=== PATIENT | female | born 1950 | race Caucasian/White ===

== ENCOUNTER 2016-12-03 12:10 | Emergency (ER) | payer OTHER ==
[~2016-12-03] VITALS: Ht 165.1 cm; Wt 63.5 kg
[~2016-12-03 12:10] MED LIST: AMLODIPINE BESYL5 M1 PO; CALCIUM 500 +1 EAC5 PO; CIPRO500 M1 PO; FISH OIL 1,0001 EACH PO; FLAGYL250 M1 PO; HYDROCHLOROTHIA25 M1 PO; ONDANSETRON4 MG/2 M3 IV; PROTONIX40 M3 IV; TOPROL XL100 M1 PO; VITAMIN B-121000 MC3 PO
--- NOTE | 2016-12-03 12:24 | ED GI/GU/ABDOMINAL COMPLAINT ---
History of Present Illness General Chief Complaint: Nausea, Vomiting, Diarrhea Stated Complaint: NOT FEELING WELL, N/V/D Vital Signs & Intake/Output Vital Signs & Intake/Output Vital Signs Date Time Temp Pulse Resp B/P Pulse O2 O2 Flow FiO2 Ox Delivery Rate 12/03 1213 97.7 87 18 118/80 94 Room Air Allergies Coded Allergies: erythromycin base (Intermediate, ABDOMINAL PAIN 12/03/16) lisinopril (Intermediate, COUGHING 12/03/16) Reconcile Medications Amlodipine Besylate 5 MG TABLET 1 TAB PO DAILY BP (Reported) Calcium Carbonate/Vitamin D3 (Calcium 500 + D Tablet) 500 MG-400 TABLET 1 TAB PO DAILY SUPPLEMENT (Reported) Ciprofloxacin HCl (Cipro) 500 MG TABLET 1 TAB PO BID DICERTICULITIS Cyanocobalamin (Vitamin B-12) 1,000 MCG TABLET 1 TAB PO DAILY SUPPLEMENT ( Reported) Hydrochlorothiazide 25 MG TABLET 1 TAB PO DAILY BP (Reported) Metoprolol Succ XL (Toprol XL) 100 MG TAB.ER.24H 1 TAB PO DAILY BP (Reported) Metronidazole (Flagyl) 250 MG TABLET 250 MG PO Q8 DIVERTICULITIS Ondansetron HCl/Pf (Ondansetron HCl 4 MG/2 Ml Vial) 4 MG/2 ML VIAL 4 MG IV ONCE PRN NAUSEA/VOMITING Pantoprazole Sodium (Protonix) 40 MG TABLET.DR 40 MG IV DAILY ACID REFLUX Triage Note: TRIAGE: PT TO ER C/C LOW ABD PAIN, N/V/D. STATES "I CAN'T KEEP NOTHING DOWN" X "AT LEAST A WEEK". PMHX PANCREATIC CANCER. LAST HAD CHEMOTHERAPY 11/24/2016. Past History Travel History Traveled to [place] past 21 day No Medical History Neurological: NONE EENT: NONE Cardiovascular: hypertension, heart murmur Respiratory: NONE Gastrointestinal: GERD Hepatic: NONE Renal: nephrolithiasis Musculoskeletal: NONE Psychiatric: NONE Endocrine: NONE Blood Disorders: DVT Cancer(s): pancreatic cancer ABATTOIR SUPERVISOR/Reproductive: NONE History of MRSA: No History of VRE: No History of CDIFF: No Surgical History Surgical History: none Psychosocial History Who do you live with Family Services at Home None What is your primary language Belarusian Tobacco Use: Quit >30 days ago ETOH Use: denies use Illicit Drug Use: denies illicit drug use Family History Family History, If Any: FATHER CABG Progress Plan of Care: Orders Procedure Date/time Status LACTIC ACID 12/03 1525 Active XRY-PORTABLE CHEST XRAY 12/03 1253 Active Add-on Test (ER Only) 12/03 1253 Active EKG 12/03 1253 Active URINALYSIS 12/03 1225 Active TROPONIN LEVEL 12/03 1225 Active LIPASE 12/03 1225 Active LACTIC ACID 12/03 1225 Active COMPREHENSIVE METABOLIC PANEL 12/03 1225 Active CBC WITHOUT DIFFERENTIAL 12/03 1225 Complete AMYLASE 12/03 1225 Active Current Medications Sig/Jonathan Start time Last Medication Dose Stop Time Status Admin Sodium Chloride 1,000 ML BOLUS ONE 12/03 1300 AC (Normal Saline 0.9%) 12/03 1359 Sodium Chloride 1,000 ML BOLUS ONE 12/03 1300 AC (Normal Saline 0.9%) 12/03 1359 Laboratory Tests 12/03/16 1253: Anion Gap 9, Estimated GFR > 60, BUN/Creatinine Ratio 28.3 H, Glucose 119 H, Lactic Acid 1.5, Calcium 9.0, Total Bilirubin 0.4, AST 18, ALT 53 H, Alkaline Phosphatase 70, Troponin I Pending, Total Protein 5.0 L, Albumin 2.7 L, Globulin 2.3, Albumin/Globulin Ratio 1.2, Amylase < 30 L, Lipase 71, CBC w Diff MAN DIFF ORDERED, RBC 4.58, MCV 88.8, MCH 29.6, RDW 14.0, MPV 8.2, Gran % 50.7, Lymphocytes % 26.7, Monocytes % 21.9 H, Eosinophils % 0.3, Basophils % 0.4, Absolute Granulocytes 1.7, Segmented Neutrophils 35 L, Band Neutrophils 13 H, Absolute Lymphocytes 0.9 L, Lymphocytes 33, Monocytes 18 H, Absolute Monocytes 0.7 H, Absolute Eosinophils 0, Absolute Basophils 0, Metamyelocytes 1, Platelet Estimate VERIFIED BY SMEAR, Normocytic RBCs VERIFIED, Normochromic RBCs VERIFIED , PUBS MCHC 33.3 Departure Departure Condition: Stable Referrals: ALIDA ZARATE APRN (PCP/Family) Departure Forms: Customer Survey General Discharge Information
--- NOTE | 2016-12-03 12:57 | ED GI/GU/ABDOMINAL COMPLAINT ---
History of Present Illness General Chief Complaint: Nausea, Vomiting, Diarrhea Stated Complaint: NOT FEELING WELL, N/V/D Source: patient, family, old records Exam Limitations: no limitations Vital Signs & Intake/Output Vital Signs & Intake/Output Vital Signs Date Time Temp Pulse Resp B/P Pulse O2 O2 Flow FiO2 Ox Delivery Rate 12/03 1718 108/61 12/03 1641 98.9 73 18 96/56 92 Room Air 12/03 1429 99.9 12/03 1419 99.9 74 18 109/67 96 Room Air 12/03 1213 97.7 87 18 118/80 94 Room Air Allergies Coded Allergies: erythromycin base (Intermediate, ABDOMINAL PAIN 12/03/16) lisinopril (Intermediate, COUGHING 12/03/16) Reconcile Medications Amlodipine Besylate 5 MG TABLET 1 TAB PO DAILY BP (Reported) Calcium Carbonate/Vitamin D3 (Calcium 500 + D Tablet) 500 MG-400 TABLET 1 TAB PO DAILY SUPPLEMENT (Reported) Ciprofloxacin HCl (Cipro) 500 MG TABLET 1 TAB PO BID DICERTICULITIS Cyanocobalamin (Vitamin B-12) 1,000 MCG TABLET 1 TAB PO DAILY SUPPLEMENT ( Reported) Hydrochlorothiazide 25 MG TABLET 1 TAB PO DAILY BP (Reported) Metoprolol Succ XL (Toprol XL) 100 MG TAB.ER.24H 1 TAB PO DAILY BP (Reported) Metronidazole (Flagyl) 250 MG TABLET 250 MG PO Q8 DIVERTICULITIS Ondansetron (Zofran Odt) 4 MG TAB.RAPDIS 1 TAB SL TID PRN NAUSEA Ondansetron HCl/Pf (Ondansetron HCl 4 MG/2 Ml Vial) 4 MG/2 ML VIAL 4 MG IV ONCE PRN NAUSEA/VOMITING Pantoprazole Sodium (Protonix) 40 MG TABLET.DR 40 MG IV DAILY ACID REFLUX Triage Note: TRIAGE: PT TO ER C/C LOW ABD PAIN, N/V/D. STATES "I CAN'T KEEP NOTHING DOWN" X "AT LEAST A WEEK". PMHX PANCREATIC CANCER. LAST HAD CHEMOTHERAPY 11/24/2016. Triage Nurses Notes Reviewed? yes ? N Is pt currently ? No HPI: PT HAS KNOWN STAGE 4 PANCREATIC CA AND IS ON CHEMO. HER LAST ROUND WAS 11/24/16. SHE HAS BEEN HAVING NAUSEA, VOIMITING AND DIARRHEA. SHE ALSO HAS BEEN HAVING INTERMITTENT ABD CRAMPY PAIN. SHE CALLED HER ONCOLOGIST TODAY BECAUSE OF THE PERSISTENT N/V AND DIARRHEA. HER ABD PAIN IS INTERMITTENT AND CRAMPY, IT IS DIFFUSE. NO AGGRIVATING OR MITIGATING FACTORS. THE PAIN LASTS A FEW HOURS AND THEN GOES AWAY. SHE DOES NOT ASSOCIATE THE N/V/D WITH THE ABD PAIN.. AT ITS WORST THE PAIN IS 6 OUT OF 10. THERE IS NO RADIATION OUTSIDE OF THE ABD AREA. Past History Travel History Traveled to [place] past 21 day No Medical History Any Pertinent Medical History? 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 No Review of Systems Review of Systems Constitutional: Reports: no symptoms. EENTM: Reports: no symptoms. Respiratory: Reports: no symptoms. Cardiovascular: Reports: no symptoms. GI: Reports: see HPI, abdominal pain, diarrhea, nausea, vomiting. Genitourinary: Reports: no symptoms. Musculoskeletal: Reports: no symptoms. Skin: Reports: no symptoms. Neurological/Psychological: Reports: no symptoms. Hematologic/Endocrine: Reports: no symptoms. Immunologic/Allergic: Reports: no symptoms. All Other Systems: Reviewed and Negative Physical Exam Physical Exam General Appearance: well developed/nourished, alert, awake, anxious, mild distress Head: atraumatic, normal appearance Eyes: Bilateral: PERRL, EOMI. Ears, Nose, Throat, Mouth: hearing grossly normal, DRY MUCOSA Neck: normal inspection, supple, full range of motion Respiratory: normal breath sounds, chest non-tender, no respiratory distress, lungs clear Cardiovascular: regular rate/rhythm, normal peripheral pulses Gastrointestinal: normal bowel sounds, soft, non-tender, no organomegaly, NO REBOUND OR GUARDING Back: normal inspection, normal range of motion Extremities: normal range of motion Neurologic/Psych: no motor/sensory deficits, awake, alert, oriented x 3, normal mood/affect Skin: intact, normal color, warm/dry Core Measures ACS in differential dx? No Severe Sepsis Present: No Septic Shock Present: No Progress Differential Diagnosis: biliary colic, bowel obstruction, cholecystitis, gastritis, hepatitis, ischemic bowel, inflamm bowel dis, pancreatitis Plan of Care: Orders Procedure Date/time Status Add-on Test (ER Only) 12/03 1253 Active EKG 12/03 1253 Active URINALYSIS 12/03 1225 Complete TROPONIN LEVEL 12/03 1225 Complete LIPASE 12/03 1225 Complete LACTIC ACID 12/03 1225 Complete COMPREHENSIVE METABOLIC PANEL 12/03 1225 Complete CBC WITHOUT DIFFERENTIAL 12/03 1225 Complete AMYLASE 12/03 1225 Complete Laboratory Tests 12/03/16 1525: Lactic Acid Cancelled 12/03/16 1453: Urinalysis LIGHT H, Urine Color YEL, Urine Clarity HAZY H, Urine pH 6.0, Ur Specific [place] 1.025, Urine Protein 30 H, Urine Ketones TRACE H, Urine Nitrite NEG, Urine Bilirubin NEG@ICTO, Urine Urobilinogen 0.2, Ur Leukocyte Esterase NEG, Ur Microscopic SEDIMENT EXAMINED, Urine RBC RARE, Urine WBC 1-3 H , Ur Epithelial Cells MANY H, Urine Mucus MANY H, Urine Hemoglobin TRACE- INTACT, Urine Glucose NEG 12/03/16 1253: Anion Gap 9, Estimated GFR > 60, BUN/Creatinine Ratio 28.3 H, Glucose 119 H, Lactic Acid 1.5, Calcium 9.0, Total Bilirubin 0.4, AST 18, ALT 53 H, Alkaline Phosphatase 70, Troponin I < 0.01, Total Protein 5.0 L, Albumin 2.7 L, Globulin 2.3, Albumin/Globulin Ratio 1.2, Amylase < 30 L, Lipase 71, CBC w Diff MAN DIFF ORDERED, RBC 4.58, MCV 88.8, MCH 29.6, RDW 14.0, MPV 8.2, Gran % 50.7, Lymphocytes % 26.7, Monocytes % 21.9 H, Eosinophils % 0.3, Basophils % 0.4, Absolute Granulocytes 1.7, Segmented Neutrophils 35 L, Band Neutrophils 13 H, Absolute Lymphocytes 0.9 L, Lymphocytes 33, Monocytes 18 H, Absolute Monocytes 0.7 H, Absolute Eosinophils 0, Absolute Basophils 0, Metamyelocytes 1, Platelet Estimate VERIFIED BY SMEAR, Normocytic RBCs VERIFIED, Normochromic RBCs VERIFIED , PUBS MCHC 33.3 Initial ED EKG: none Comments: D/W ONCOLOGY, PT IS STABLE IS FOR DISCHARGE. THIS WAS DISCUSSED WITH THE PT AND HER . QUESTIONS HAVE BEEN ANSWERED. THEY ARE COMFORTABLE WITH THE PLAN. Departure Departure Disposition: HOME OR SELF CARE Condition: Stable Clinical Impression Primary Impression: Upper abdominal pain, unspecified Secondary Impressions: Vomiting Referrals: ALIDA ZARATE APRN (PCP/Family) Additional Instructions: RETURN IF SYMPTOMS WORSEN OR FOR ANY CONCERNS Departure Forms: Customer Survey General Discharge Information Prescriptions: Current Visit Scripts Ondansetron (Zofran Odt) 1 TAB SL TID PRN NAUSEA #10 TAB
[2016-12-03 13:13] LABS: ABSOLUTE BASOPHIL COUNT 0 /CUMM (0.0-0.2); ABSOLUTE EOSINOPHIL COUNT 0 /CUMM (0.0-0.7); ABSOLUTE GRANULOCYTE CT 1.7 /CUMM (1.4-6.5); ABSOLUTE LYMPH COUNT 0.9 /CUMM (1.2-3.4); ABSOLUTE MONOCYTE COUNT 0.7 /CUMM (0.10-0.60); BASOPHIL % 0.4 % (0.0-2.0); EOSINOPHIL % 0.3 % (0-5); GRANULOCYTE % 50.7 % (42.2-75.2); HEMATOCRIT 40.6 % (37-47); MEAN CORPUSCULAR HGB 29.6 PG (27.0-31.0); MEAN CORPUSCULAR HGB CONC 33.3 G/DL (33.0-37.0); MEAN CORPUSCULAR VOLUME 88.8 FL (81.0-99.0); MEAN PLATELET VOLUME 8.2 FL (7.4-10.4); PLATELET COUNT 233 /CUMM (130-400); RED BLOOD CELL CT 4.58 /CUMM (4.20-5.40); WHITE BLOOD CELL COUNT 3.3 /CUMM (4.8-10.8)
--- NOTE | 2016-12-03 14:26 | RADIOLOGY REPORT ---
EXAMINATION: XR PORTABLE CHEST CLINICAL INFORMATION: Chest pain COMPARISON: None TECHNIQUE: Portable AP view of the chest was obtained. FINDINGS: There is a Port-A-Cath with the tip situated in the right atrium approximately 2 cm deep to the junction with the superior vena cava. The tubing is grossly intact. No pneumothorax is identified. Heart size is normal. The aorta is mildly tortuous. Pulmonary vascularity is normal. There is elevation of the right diaphragm with some subsegmental atelectasis or scarring at the right lung base. No other focal findings are seen. The left lung is clear. There is no definitive pleural effusion. No acute bony abnormality is seen. There is some hypertrophic spurring in the dorsal spine IMPRESSION: Port-A-Cath in place with the tip in the right atrium. Elevated right diaphragm with subsegmental atelectasis or scarring at the right base. No other finding.
[2016-12-03] MEDS ORDERED: ZOFRAN ODT4 M1 SL (15:47)
[2016-12-03 17:18] VITALS: BP 108/61
== END 2016-12-03 17:32 ==
LOC: ERH 12:10
PROVIDERS: Physician Assistant
DX: R10.10 Upper abdominal pain, unspecified (principal); R11.10 Vomiting, unspecified
CPT/HCPCS: 81001; 93005; 93010; 96374; 96375; 96376; J2405

== ENCOUNTER 2018-07-04 20:17 | Inpatient (IN) | payer OTHER ==
[~2018-07-04] VITALS: Ht 162.6 cm; Wt 68.0 kg
[~2018-07-04 20:17] MED LIST changes: +ZOFRAN ODT4 M1 SL
--- NOTE | 2018-07-04 20:33 | ED DYSPNEA/ASTHMA COMPLAINT ---
History of Present Illness General Chief Complaint: Dyspnea (COPD, CHF, Other) Stated Complaint: "DIFF BREATHING" Source: patient, family, old records Exam Limitations: no limitations Vital Signs & Intake/Output Vital Signs & Intake/Output Vital Signs Date Time Temp Pulse Resp B/P B/P Pulse O2 O2 Flow FiO2 Mean Ox Delivery Rate 07/044 98.2 78 22 111/68 95 Nasal Cannula 07/04 2038 97.6 85 16 117/58 86 Room Air 07/04 2030 Nasal 4.0L Cannula ED Intake and Output 07/05 0000 07/04 1200 Intake Total 0 Output Total Balance 0 Intake, Oral 0 Patient 150 lb Weight Weight Reported by Patient Measurement Method Allergies Coded Allergies: erythromycin base (Intermediate, ABDOMINAL PAIN 12/03/16) lisinopril (Intermediate, COUGHING 12/03/16) Reconcile Medications Amlodipine Besylate 5 MG TABLET 1 TAB PO DAILY BP (Reported) Calcium Carbonate/Vitamin D3 (Calcium 500 + D Tablet) 500 MG-400 TABLET 1 TAB PO DAILY SUPPLEMENT (Reported) Ciprofloxacin HCl (Cipro) 500 MG TABLET 1 TAB PO BID DICERTICULITIS Cyanocobalamin (Vitamin B-12) 1,000 MCG TABLET 1 TAB PO DAILY SUPPLEMENT ( Reported) Hydrochlorothiazide 25 MG TABLET 1 TAB PO DAILY BP (Reported) Metoprolol Succ XL (Toprol XL) 100 MG TAB.ER.24H 1 TAB PO DAILY BP (Reported) Metronidazole (Flagyl) 250 MG TABLET 250 MG PO Q8 DIVERTICULITIS Ondansetron (Zofran Odt) 4 MG TAB.RAPDIS 1 TAB SL TID PRN NAUSEA Ondansetron HCl/Pf (Ondansetron HCl 4 MG/2 Ml Vial) 4 MG/2 ML VIAL 4 MG IV ONCE PRN NAUSEA/VOMITING Pantoprazole Sodium (Protonix) 40 MG TABLET. 40 MG IV DAILY ACID REFLUX Triage Nurses Notes Reviewed? yes HPI: Patient has stage IV pancreatic cancer. Patient was in her usual state of health until this afternoon when she began to feel short of breath. She denies any chest pain. There is no coughing. She denies any orthopnea. There is no chest pain. There are no fevers or chills. She just feels that she cannot take a deep breath. Past History Travel History Traveled to [place] past 21 day No Medical History Any Pertinent Medical History? see below for history Neurological: NONE EENT: NONE Cardiovascular: hypertension, heart murmur Respiratory: NONE Gastrointestinal: GERD Hepatic: NONE Renal: nephrolithiasis Musculoskeletal: NONE Psychiatric: NONE Endocrine: NONE Blood Disorders: DVT Cancer(s): pancreatic cancer CV RN/Reproductive: NONE History of MRSA: No History of VRE: No History of CDIFF: No Surgical History Surgical History: none Psychosocial History Who do you live with Family Services at Home None What is your primary language Lithuanian Tobacco Use: Quit >30 days ago ETOH Use: denies use Illicit Drug Use: denies illicit drug use Family History Family History, If Any: FATHER CABG Hx Contributory? No Review of Systems Review of Systems Constitutional: Reports: no symptoms. EENTM: Reports: no symptoms. Respiratory: Reports: see HPI, short of breath. Cardiovascular: Reports: no symptoms. GI: Reports: no symptoms. Genitourinary: Reports: no symptoms. Musculoskeletal: Reports: no symptoms. Skin: Reports: no symptoms. Neurological/Psychological: Reports: no symptoms. Hematologic/Endocrine: Reports: no symptoms. Immunologic/Allergic: Reports: no symptoms. All Other Systems: Reviewed and Negative Physical Exam Physical Exam General Appearance: well developed/nourished, alert, awake, anxious, moderate distress Head: atraumatic, normal appearance Eyes: Bilateral: PERRL, EOMI. Ears, Nose, Throat: normal pharynx, normal ENT inspection, hearing grossly normal Neck: normal inspection, supple, full range of motion Respiratory: decreased breath sounds, respiratory distress Cardiovascular: regular rate/rhythm, normal peripheral pulses Gastrointestinal: normal bowel sounds, soft, non-tender, no organomegaly Extremities: normal inspection, normal capillary refill, normal range of motion Neurologic/Psych: no motor/sensory deficits, awake, alert, oriented x 3, normal mood/affect Skin: intact, normal color, warm/dry Lymphatic: no anterior cervical jose alfredo Core Measures ACS in differential dx? No CVA/TIA Diagnosis No Sepsis Present: No Sepsis Focused Exam Completed? No Progress Differential Diagnosis: bronchitis, CHF, COPD, pulmonary embolism, pneumonia, pneumothorax Plan of Care: Orders Procedure Date/time Status Heart Healthy Diet 07/[address] in observation 07/05 3 Active ED Holding Orders 07/05 3 Active Patient Data 07/05 3 Active Vital Signs 07/05 3 Active Code Status 07/05 3 Active Add-on Test (ER Only) 07/05 2 Active ARTERIAL BLOOD GAS (GEN) 07/04 2032 Active Telemetry/Facilities Assistant 07/04 2032 Active URINALYSIS 07/04 2032 Active TROPONIN LEVEL 07/04 2032 Complete COMPREHENSIVE METABOLIC PANEL 07/04 2032 Complete CBC WITHOUT DIFFERENTIAL 07/04 2032 Complete EKG 07/04 2022 Active Current Medications Sig/Jonathan Start time Last Medication Dose Stop Time Status Admin Morphine Sulfate 2 MG ONCE ONE 07/04 2345 UNVr 07/04 (MORPHINE SULFATE) 07/04 2346 2358 Laboratory Tests 07/04/182054: Anion Gap 7, Estimated GFR > 60, BUN/Creatinine Ratio 25.7 H, Glucose 93, Calcium 9.0, Total Bilirubin 0.5, AST 20, ALT 23, Alkaline Phosphatase 84, Troponin I < 0.01, Total Protein 5.4 L, Albumin 2.4 L, Globulin 3.0, Albumin/ Globulin Ratio 0.8 L, CBC w Diff NO MAN DIFF REQ, RBC 3.84 L, MCV 89.3, MCH 28.4, MCHC 31.8 L, RDW 20.0 H, MPV 7.4, Gran % 79.7 H, Lymphocytes % 12.6 L, Monocytes % 7.2, Eosinophils % 0.3, Basophils % 0.2, Absolute Granulocytes 5.8, Absolute Lymphocytes 0.9 L, Absolute Monocytes 0.5, Absolute Eosinophils 0, Absolute Basophils 0 07/04/182049: pH 7.44, pCO2 38, pO2 98, HCO3 25, ABG O2 Sat (Measured) 97.0, P-50 (Temp Corrected) N, Carboxyhemoglobin 0.9 L, O2 Concentration % 4L, Temperature 97.6, O2 Delivery Method NC, Phlebotomy Draw Site RIGHT RADIAL Diagnostic Imaging: Viewed by Me: Radiology Read. Discussed w/RAD: Radiology Read. Radiology Impression: PATIENT: MONICO MICHAELS PRESENT AGE: 67 PATIENT ACCOUNT NO: [id number] : 51 LOCATION: [facility] ORDERING PHYSICIAN: Denny Jones MD SERVICE DATE: 07/04/18 EXAM TYPE: CAT - CTA CHEST-PULMONARY EMBOLISM EXAMINATION: CT ANGIOGRAM OF THE CHEST WITH AND WITHOUT CONTRAST (CT PULMONARY ANGIOGRAM FOR PE) CLINICAL INFORMATION: Reason for Study:
Presumptive Dx: PE
Signs Symptoms: HYPOXIA
COMPARISON: Chest radiograph same day. TECHNIQUE: Prior to contrast administration, noncontrast localization images were obtained. Subsequently, multidetector volumetric imaging was performed from the thoracic inlet to below the diaphragms following the administration of 80 mL Omnipaque 350 intravenous contrast. No contrast reaction reported. Sagittal, coronal, and MIP oblique sagittal reformatted images were obtained on the CT workstation, uploaded to PACS, and reviewed. Total exam dose-length product 338 mGy-cm. FINDINGS: QUALITY OF STUDY/CONTRAST BOLUS: Satisfactory PULMONARY ARTERIES: No central or proximal segmental pulmonary emboli. Evaluation of the lower lobe and right upper lobe segmental branches is made limited secondary to collapse/consolidation. THORACIC AORTA: No aneurysm or dissection. LUNG/PLEURA: There is a moderate to large right pleural effusion and moderate left pleural effusion with associated bibasilar and right upper lobe collapse/consolidation. The attenuation of the effusions measures up to 23 Hounsfield units, more than expected for simple fluid. Multiple subcentimeter pulmonary nodules are seen. For example, an irregular shaped nodule is seen in the right upper lobe measuring 7 mm (series 2 , image 126). In the left upper lobe, and additional 7 mm nodule is seen (series 2, image 84) as well as a 4 mm nodule (series 2, image 92) just posterior to this lesion. Additional subcentimeter nodules are seen elsewhere involving the lungs, to which are subpleural location in the anterior right upper lobe. PLEURA : No pleural effusion or pneumothorax. MEDIASTINUM: The heart is mildly prominent in size. There is a small pericardial effusion. No evidence of septal bowing or right heart strain. CHEST WALL/AXILLA: No axillary or internal mammary lymphadenopathy. OSSEOUS STRUCTURES: No suspicious lytic or blastic osseous lesions. UPPER ABDOMEN: Partially visualized ascites involving the upper abdomen. No reflux of contrast into the hepatic veins to suggest elevated right heart pressures. IMPRESSION: No evidence of central or proximal segmental pulmonary embolism. Moderate to large right and moderate left pleural effusions with associated dependent collapse/consolidation. The attenuation of the effusions measures more than expected for simple fluid; correlation with body fluid analysis is suggested. Multiple subcentimeter pulmonary nodules; given the patient's history of malignancy, these findings are concerning for metastatic disease. Partially visualized ascites. DICTATED BY: Jaleel Strong MD DATE/TIME DICTATED:07/04/182328 RESTAURANT MANAGER:ROSCOE DATE/TIME TRANSCRIBED:2328 CONFIDENTIAL, DO NOT COPY WITHOUT APPROPRIATE AUTHORIZATION. < Electronically signed in Other Vendor System> SIGNED BY: Jaleel Strong MD 07/04/182343 CXR Impression: PATIENT: MONICO MICHAELS PRESENT AGE: 67 PATIENT ACCOUNT NO: [id number] : 51 LOCATION: [facility] ORDERING PHYSICIAN: Denny Jones MD SERVICE DATE: 07/04/18 EXAM TYPE: RAD - XRY-PORTABLE CHEST XRAY EXAMINATION: XR PORTABLE CHEST CLINICAL INFORMATION: Stage IV pancreatic cancer. COMPARISON: Chest x-ray 12/03/2016 TECHNIQUE: Portable frontal view of the chest was obtained. 8:31 PM FINDINGS: Central port catheter tip unchanged position at the cavoatrial junction. There is low inspiratory effort. There is density at both lung bases which is new since prior exam. On the right this is due to a moderate to large right pleural effusion and probable underlying consolidation. On the left there is slight blunting the costophrenic angle due to a small left pleural effusion. There are streaky opacities of infiltrate or atelectasis at the lung base as well. IMPRESSION: Bilateral opacities of lung. Moderate to large right pleural effusion now present. There is a small left pleural effusion with left basilar infiltrate/ atelectasis. DICTATED BY: Jorge Dietrich MD DATE/TIME DICTATED:07/04/182100 RESTAURANT MANAGER:ROSCOE DATE/TIME TRANSCRIBED:07/04/182100 CONFIDENTIAL, DO NOT COPY WITHOUT APPROPRIATE AUTHORIZATION. <Electronically signed in Other Vendor System> SIGNED BY: Jorge Dietrich MD 07/04/182105 Initial ED EKG: SR WITH PACS, AND NSSTT CHANGES, NO CHANGE FROM PREVIOUS Prior EKG: unchanged Departure Departure Disposition: STILL A PATIENT Condition: Guarded Clinical Impression Primary Impression: Hypoxia Secondary Impressions: Pleural effusion Referrals: Shannan Bates APRN (PCP/Family) Departure Forms: Customer Survey General Discharge Information Observation Note Spoke With: Jovany Anderson MD Physician Advisor Notified: AVNI MARTINEZ,DENNY Draper Place Patient In: Non-ED OBS Care Area Rationale for Observation: My rational for observation is as follows [IR guided thoracentesis, pain control , O2 monitoring]. Critical Care Note Critical Care Note Critical Care Time: non-applicable
--- NOTE | 2018-07-04 21:06 | RADIOLOGY REPORT ---
EXAMINATION: XR PORTABLE CHEST CLINICAL INFORMATION: Stage IV pancreatic cancer. COMPARISON: Chest x-ray 12/03/2016 TECHNIQUE: Portable frontal view of the chest was obtained. 8:31 PM FINDINGS: Central port catheter tip unchanged position at the cavoatrial junction. There is low inspiratory effort. There is density at both lung bases which is new since prior exam. On the right this is due to a moderate to large right pleural effusion and probable underlying consolidation. On the left there is slight blunting the costophrenic angle due to a small left pleural effusion. There are streaky opacities of infiltrate or atelectasis at the lung base as well. IMPRESSION: Bilateral opacities of lung. Moderate to large right pleural effusion now present. There is a small left pleural effusion with left basilar infiltrate/atelectasis.
[2018-07-04 21:25] LABS: ABSOLUTE BASOPHIL COUNT 0 /CUMM (0.0-0.2); ABSOLUTE EOSINOPHIL COUNT 0 /CUMM (0.0-0.7); ABSOLUTE GRANULOCYTE CT 5.8 /CUMM (1.4-6.5); ABSOLUTE LYMPH COUNT 0.9 /CUMM (1.2-3.4); ABSOLUTE MONOCYTE COUNT 0.5 /CUMM (0.10-0.60); BASOPHIL % 0.2 % (0.0-2.0); EOSINOPHIL % 0.3 % (0-5); HEMATOCRIT 34.3 % (37-47); MEAN CORPUSCULAR HGB 28.4 PG (27.0-31.0); MEAN CORPUSCULAR HGB CONC 31.8 G/DL (33.0-37.0); MEAN CORPUSCULAR VOLUME 89.3 FL (81.0-99.0); MEAN PLATELET VOLUME 7.4 FL (7.4-10.4); PLATELET COUNT 362 /CUMM (130-400); RED BLOOD CELL CT 3.84 /CUMM (4.20-5.40); WHITE BLOOD CELL COUNT 7.2 /CUMM (4.8-10.8)
[2018-07-04 21:37] LABS: GRANULOCYTE % 79.7 % (42.2-75.2)
--- NOTE | 2018-07-04 23:44 | CT SCAN REPORT ---
EXAMINATION: CT ANGIOGRAM OF THE CHEST WITH AND WITHOUT CONTRAST (CT PULMONARY ANGIOGRAM FOR PE) CLINICAL INFORMATION: Reason for Study:
Presumptive Dx: PE
Signs Symptoms: HYPOXIA
COMPARISON: Chest radiograph same day. TECHNIQUE: Prior to contrast administration, noncontrast localization images were obtained. Subsequently, multidetector volumetric imaging was performed from the thoracic inlet to below the diaphragms following the administration of 80 mL Omnipaque 350 intravenous contrast. No contrast reaction reported. Sagittal, coronal, and MIP oblique sagittal reformatted images were obtained on the CT workstation, uploaded to PACS, and reviewed. Total exam dose-length product 338 mGy-cm. FINDINGS: QUALITY OF STUDY/CONTRAST BOLUS: Satisfactory PULMONARY ARTERIES: No central or proximal segmental pulmonary emboli. Evaluation of the lower lobe and right upper lobe segmental branches is made limited secondary to collapse/consolidation. THORACIC AORTA: No aneurysm or dissection. LUNG/PLEURA: There is a moderate to large right pleural effusion and moderate left pleural effusion with associated bibasilar and right upper lobe collapse/consolidation. The attenuation of the effusions measures up to 23 Hounsfield units, more than expected for simple fluid. Multiple subcentimeter pulmonary nodules are seen. For example, an irregular shaped nodule is seen in the right upper lobe measuring 7 mm (series 2, image 126). In the left upper lobe, and additional 7 mm nodule is seen (series 2, image 84) as well as a 4 mm nodule (series 2, image 92) just posterior to this lesion. Additional subcentimeter nodules are seen elsewhere involving the lungs, to which are subpleural location in the anterior right upper lobe. PLEURA: No pleural effusion or pneumothorax. MEDIASTINUM: The heart is mildly prominent in size. There is a small pericardial effusion. No evidence of septal bowing or right heart strain. CHEST WALL/AXILLA: No axillary or internal mammary lymphadenopathy. OSSEOUS STRUCTURES: No suspicious lytic or blastic osseous lesions. UPPER ABDOMEN: Partially visualized ascites involving the upper abdomen. No reflux of contrast into the hepatic veins to suggest elevated right heart pressures. IMPRESSION: No evidence of central or proximal segmental pulmonary embolism. Moderate to large right and moderate left pleural effusions with associated dependent collapse/consolidation. The attenuation of the effusions measures more than expected for simple fluid; correlation with body fluid analysis is suggested. Multiple subcentimeter pulmonary nodules; given the patient's history of malignancy, these findings are concerning for metastatic disease. Partially visualized ascites.
--- NOTE | 2018-07-05 00:28 | History & Physical ---
Rikki Cabrera 07/05/18 0027: General Information and HPI History of Present Illness: 67-year-old female with past medical history of hypertension, GERD, nephrolithiasis, DVT in 1983 status post Coumadin 6 month, pancreatic cancer, presented with the chief complaint of shortness of breath, epigastric pain and bilateral pleural effusion. According to her she has been shortness of breath for the last 1 day, which is associated with pleuritic chest pain by scale of 10 /10 aggravating by lying down flight and relieved by leaning forward. She denies fever, chills, sick contact, diarrhea, constipation, burning micturition. She also having severe abdominal pain which is chronic and associated with pancreatic malignancy. At the time of presentation to emergency department patient vitals and labs are given below Vitals: Temperature 98.1, pulse rate 58, respiratory 20, blood pressure 127 /72, oxygen saturation 94 on 4 L oxygen Labs: WBC 7.2, hemoglobin 10.9, hematocrit 34.3, MCV 89.3, platelet 362 Sodium 139, potassium 4.5, creatinine 0.7, glucose 93 X-ray chest: IMPRESSION: Bilateral opacities of lung. Moderate to large right pleural effusion now present. There is a small left pleural effusion with left basilar infiltrate/atelectasis. CTA: No evidence of central or proximal segmental pulmonary embolism. Moderate to large right and moderate left pleural effusions with associated dependent collapse/consolidation. The attenuation of the effusions measures more than expected for simple fluid; correlation with body fluid analysis is suggested. Multiple subcentimeter pulmonary nodules; given the patient's history of malignancy, these findings are concerning for metastatic disease. Partially visualized ascites. Allergies/Medications Allergies: Coded Allergies: erythromycin base (Intermediate, ABDOMINAL PAIN 12/03/16) lisinopril (Intermediate, COUGHING 12/03/16) Past History Travel History Traveled to [place] past 21 day No Medical History Neurological: NONE EENT: NONE Cardiovascular: hypertension, heart murmur Respiratory: NONE Gastrointestinal: GERD Hepatic: NONE Renal: nephrolithiasis Musculoskeletal: NONE Psychiatric: NONE Endocrine: NONE Blood Disorders: DVT Cancer(s): pancreatic cancer CLINICAL NURSING INSTRUCTOR/Reproductive: NONE History of MRSA: No History of VRE: No History of CDIFF: No Surgical History Surgical History: none Past Family/Social History Family History Relations & Conditions if any FATHER CABG Psychosocial History Who Do You Live With? spouse Services at Home: None Primary Language: Monegasque ETOH Use: denies use Illicit Drug Use: denies illicit drug use Functional Ability ADLs Independent: dressing, eating, toileting, bathing. Ambulation: independent IADLs Independent: shopping, housework, finances, food prep, telephone, transportation , medication admin. Review of Systems Review of Systems Constitutional: Reports: see HPI. Exam & Diagnostic Data Last 24 Hrs of Vital Signs/I&O Vital Signs Date Time Temp Pulse Resp B/P B/P Pulse O2 O2 Flow FiO2 Mean Ox Delivery Rate 07/05 0637 99.2 60 20 112/60 99 Nasal 4.0L Cannula 07/05 0244 94 Nasal 4.0L Cannula 07/05 0216 98.2 60 20 104/64 98 Nasal 4.0L Cannula 07/05 0058 98.1 58 20 127/72 94 Nasal 4.0L Cannula 07/04 2344 98.2 78 22 111/68 95 Nasal Cannula 07/04 2038 97.6 85 16 117/58 86 Room Air 07/04 2030 Nasal 4.0L Cannula Intake & Output 07/05 0800 07/05 0000 07/04 1600 Intake Total 30 0 Output Total 200 Balance -170 0 Intake, Oral 30 0 Output, Urine 200 Patient 150 lb 150 lb Weight Weight Reported by Patient Measurement Method Physical Exam General Appearance Alert, Oriented X3, Cooperative, Mild Distress Cardiovascular Normal S1, Normal S2 Lungs Clear to Auscultation, right basal decrease air entery Abdomen Soft, No Tenderness, No Hepatospenomegaly Extremities b/l PEDAL EDEMA Assessment/Plan Assessment: 67-year-old female with past medical history of hypertension, GERD, nephrolithiasis, DVT in 1983 status post Coumadin 6 month, pancreatic cancer, presented with the chief complaint of shortness of breath, epigastric pain and bilateral pleural effusion. According to her she has been shortness of breath for the last 1 day. At the time of presentation emergency department her vitals and labs are given below. Vitals: Temperature 98.1, pulse rate 58, respiratory 20, blood pressure 127 /72, oxygen saturation 94 on 4 L oxygen Labs: WBC 7.2, hemoglobin 10.9, hematocrit 34.3, MCV 89.3, platelet 362 Sodium 139, potassium 4.5, creatinine 0.7, glucose 93 X-ray chest: IMPRESSION: Bilateral opacities of lung. Moderate to large right pleural effusion now present. There is a small left pleural effusion with left basilar infiltrate/atelectasis. CTA: No evidence of central or proximal segmental pulmonary embolism. Moderate to large right and moderate left pleural effusions with associated dependent collapse/consolidation. The attenuation of the effusions measures more than expected for simple fluid; correlation with body fluid analysis is suggested. Multiple subcentimeter pulmonary nodules; given the patient's history of malignancy, these findings are concerning for metastatic disease. Partially visualized ascites. Problems list: * Pleural effusion * Hypoxic respiratory failure * Pancreatic cancer status post chemotherapy * Past medical history of hypertension, GERD, DVT Pleural effusion: * The patient having bilateral pleural effusion more on the right side as well as collapse in the left lower lobe. Her pleural effusion seems to be associated with pancreatic malignancy secondary to metastasis to lungs. * Patient will be n.p.o. from midnight for tomorrow thoracocentesis therapeutic and diagnostic * Pulmonology consult in a.m. * Patient aggressive treatment she is rather going for palliative care * Pleural max permanent catheter may be placed * Pulmonology consult in a.m. Hypoxic respiratory failure: * Patient hypoxic respiratory failure is most likely due to pleural effusion. She is on 2 L oxygen and responding well maintaining saturation Pancreatic cancer status post chemotherapy: * Patient was taking chemotherapy * Due to chemotherapy adverse effect she was unable to eat and drink * NoW she is denying taking more chemotherapeutic treatment * She is ready to go for palliative care * According to her she is having palliative care nurse at [facility] *Her other home medication will be continued *DVT/GI prophylaxis As Ranked By This Provider Problem List: 1. Pleural effusion 2. Hypoxia 3. Upper abdominal pain, unspecified 4. Pancreatic mass Core Measures/Misc (06/25) Acute Coronary Syndrome ACS Diagnosis: No Congestive Heart Failure Congestive Heart Failure Diagnosis No Cerebrovascular Accident CVA/TIA Diagnosis: No VTE (View Protocol) VTE Risk Factors Age>40 No Mechanical VTE Prophylaxis d/t Other No VTE Pharm Prophylaxis d/t Other Sepsis (View protocol) Sepsis Present: No If YES complete Sepsis Event Note If YES complete Sepsis Event Note Edwin MARTINEZ,Aramis 07/05/18 0053: General Information and HPI Allergies/Medications Home Med list Amlodipine Besylate 5 MG TABLET 1 TAB PO DAILY BP (Reported) Calcium Carbonate/Vitamin D3 (Calcium 500 + D Tablet) 500 MG-400 TABLET 1 TAB PO DAILY SUPPLEMENT (Reported) Cyanocobalamin (Vitamin B-12) 1,000 MCG TABLET 1 TAB PO DAILY SUPPLEMENT ( Reported) Magnesium Oxide (Magox 400) 400 MG TABLET 1 TAB PO DAILY MAGNESIUM (Reported) Metoprolol Succ XL (Toprol XL) 100 MG TAB.ER.24H 1 TAB PO DAILY BP (Reported) Morphine Sulfate 15 MG TABLET 1 TAB PO 4XDP PRN PAIN (Reported) Morphine Sulfate (Morphine Sulfate ER) 15 MG TABLET.ER 1 TAB PO BIDP PRN PAIN (Reported) Ondansetron (Zofran Odt) 4 MG TAB.RAPDIS 1 TAB SL TID PRN NAUSEA Ondansetron HCl/Pf (Ondansetron HCl 4 MG/2 Ml Vial) 4 MG/2 ML VIAL 4 MG IV ONCE PRN NAUSEA/VOMITING Rivaroxaban (Xarelto) 20 MG TABLET 1 TAB PO DAILY BLOOD (Reported) with food Core Measures/Misc (06/25) Sepsis (View protocol) If YES complete Sepsis Event Note If YES complete Sepsis Event Note Resident Review Statement Resident Statement: examined this patient, discussed with nutrition intern, amended to note Other Findings: 67 yo with a pmhx significant for Pancreatic cancer, recently stopped treatment due to chemo adverse effects presents with acute on chronic epigastric pain and pleuritic chest pain/shortness of breath in the context of radiological finding of Moderate to large right and moderate left pleural effusions with associated dependent collapse/consolidation. Pulse ox 86 % on room air. Impression * Acute hypoxic resp failure. As evident by 02 sats of 86 on RA, work of breathing and RR of 22. Secondary to pleural effusions/consolidation. * Moderate to large pleural effusion on right and moderate left pleural effusion. 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 Consider obtaining Palliative care consult with Dr Jones. dvt ppx: Addressed by Xarelto COde status: DNR/DNI Justin MARTINEZ,Jovany 07/05/18 0708: Core Measures/Misc (06/25) Sepsis (View protocol) If YES complete Sepsis Event Note If YES complete Sepsis Event Note Attending MD Review Statement Attending Statement Attending MD Statement: examined this patient, discuss w/resident/PA/FIRE OPERATIONS FORESTER, agreed w/resident/PA/FIRE OPERATIONS FORESTER Attending Assessment/Plan: Patient is seen and examined independently by me. Care plan discussed with medical communication specialist and/or resident. I agree with the physical exam findings and plan of care as outlined above with the following changes and additions. 67 yo F history of DVT on Xarelto, HTN, GERD, metastatic pancreatic cancer stopping chemotherapy at patient's request due to oral ulcer from chemo, presented with increasing SOB with hypoxia (86% on RA). CXR shows moderate to large right pleural effusion. CTA chest shows no acute PE but has moderate to large right pleural effusion and moderate left effusion. There are subcentimeter pulmonary nodules. Patient is placed on observation to [facility] for acute hypoxic respiratory failure with bilateral pleural effusion (R>L). NPO. Hold Xarelto. IR consult for therapeutic thoracentesis. Consider Palliative care consult. DNR/DNI. Signed: Jovany Anderson MD FACP
[2018-07-05 00:38] LABS: PT 20.4 SEC (9.4-12.5); PTT 31 SEC (25-37)
[2018-07-05 02:16] VITALS: BP 104/64
[2018-07-05] MEDS ORDERED: XARELTO20 M2 PO (04:55)
[2018-07-05] MEDS ORDERED: MORPHINE SULFAT15 M4 PO (04:57)
[2018-07-05] MEDS ORDERED: MORPHINE SULFAT15 M3 PO (04:58)
[2018-07-05] MEDS ORDERED: MAGOX 400400 MG PO (05:00)
[2018-07-05 06:37] VITALS: BP 112/60
--- NOTE | 2018-07-05 09:52 | PN- Att Addend ---
Attending Addendum Attending Brief Note Patient seen and examined. We also updated her . She is a 67-year-old female with metastatic pancreatic CA who has chosen to stop all treatment and is now pursuing palliative care. She is DNR/DNI she is here with bilateral pleural effusions one side greater than the other. She is in acute hypoxemic respiratory failure as evidenced by a sat of 86% on room air with significant desaturation of oxygen and the cause is likely these malignant effusions. She was taking Xarelto for a DVT and her last dose was yesterday. We have spoken to IR about doing a palliative thoracentesis in a.m. We will also call a pulmonary consult as she may need a palliative Pleurx catheter. We are setting her up for home hospice.
--- NOTE | 2018-07-05 10:14 | Cons- Pulmonary ---
General Information and HPI Consulting Request Date of Consult: 07/05/18 Requested By: House staff Reason for Consult: Hypoxic history failure secondary to bilateral pleural effusions History of Present Illness: Patient is 67-year-old with metastatic pancreatic cancer admitted with increasing shortness of breath and chest pain. She is found to have moderate bilateral effusions in association with ascites and pulmonary nodules. She is remained afebrile with normal white count. She reports having had a CAT scan 5 days ago at [place] the results of which are unknown Allergies/Medications Allergies: Coded Allergies: erythromycin base (Intermediate, ABDOMINAL PAIN 12/03/16) lisinopril (Intermediate, COUGHING 12/03/16) Home Med List: Amlodipine Besylate 5 MG TABLET 1 TAB PO DAILY BP (Reported) Calcium Carbonate/Vitamin D3 (Calcium 500 + D Tablet) 500 MG-400 TABLET 1 TAB PO DAILY SUPPLEMENT (Reported) Cyanocobalamin (Vitamin B-12) 1,000 MCG TABLET 1 TAB PO DAILY SUPPLEMENT ( Reported) Magnesium Oxide (Magox 400) 400 MG TABLET 1 TAB PO DAILY MAGNESIUM (Reported) Metoprolol Succ XL (Toprol XL) 100 MG TAB.ER.24H 1 TAB PO DAILY BP (Reported) Morphine Sulfate 15 MG TABLET 1 TAB PO 4XDP PRN PAIN (Reported) Morphine Sulfate (Morphine Sulfate ER) 15 MG TABLET.ER 1 TAB PO BIDP PRN PAIN (Reported) Ondansetron (Zofran Odt) 4 MG TAB.RAPDIS 1 TAB SL TID PRN NAUSEA Ondansetron HCl/Pf (Ondansetron HCl 4 MG/2 Ml Vial) 4 MG/2 ML VIAL 4 MG IV ONCE PRN NAUSEA/VOMITING Rivaroxaban (Xarelto) 20 MG TABLET 1 TAB PO DAILY BLOOD (Reported) with food Review of Systems Review of Systems Constitutional: Denies: chills, fever. Cardiovascular: Reports: chest pain. Denies: edema. Respiratory: Reports: hemoptysis, orthopnea, short of breath. Denies: sputum production. GI: Reports: bloating. 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 spouse Services at Home: None Primary Language: Cuban Smoking Status: Former Smoker ETOH Use: denies use Illicit Drug Use: denies illicit drug use Functional Ability ADLs Independent: dressing, eating, toileting, bathing. Ambulation: independent IADLs Independent: shopping, housework, finances, food prep, telephone, transportation , medication admin. Exam & Diagnostic Data Last 24 Hrs of Vital Signs/I&O Vital Signs Date Time Temp Pulse Resp B/P B/P Pulse O2 O2 Flow FiO2 Mean Ox Delivery Rate 07/05 0857 86 122/74 07/05 0637 99.2 60 20 112/60 99 Nasal 4.0L Cannula 07/05 0244 94 Nasal 4.0L Cannula 07/05 0216 98.2 60 20 104/64 98 Nasal 4.0L Cannula 07/05 0058 98.1 58 20 127/72 94 Nasal 4.0L Cannula 07/04 2344 98.2 78 22 111/68 95 Nasal Cannula 07/04 2038 97.6 85 16 117/58 86 Room Air 07/04 2030 Nasal 4.0L Cannula Intake & Output 07/05 1600 07/05 0800 07/05 0000 Intake Total 30 0 Output Total 200 Balance -170 0 Intake, Oral 30 0 Output, Urine 200 Patient 150 lb 150 lb Weight Weight Reported by Patient Measurement Method Since saturation 4 L 99% HEENT exam shows recurrent venous distention exam for chest shows dullness and reduced breath sounds and egophony bilaterally right greater than left cardiac exam shows an irregular S1 and S2 abdomen is distended with evidence of ascites there is no edema Last 48 Hrs of Labs/Royer: Laboratory Tests 07/04/182054: Anion Gap 7, Estimated GFR > 60, BUN/Creatinine Ratio 25.7 H, Glucose 93, Calcium 9.0, Total Bilirubin 0.5, AST 20, ALT 23, Alkaline Phosphatase 84, Troponin I < 0.01, Total Protein 5.4 L, Albumin 2.4 L, Globulin 3.0, Albumin/ Globulin Ratio 0.8 L, PT 20.4 H, INR 1.86 H, APTT 31, CBC w Diff NO MAN DIFF REQ, RBC 3.84 L, MCV 89.3, MCH 28.4, MCHC 31.8 L, RDW 20.0 H, MPV 7.4, Gran % 79.7 H, Lymphocytes % 12.6 L, Monocytes % 7.2, Eosinophils % 0.3, Basophils % 0.2, Absolute Granulocytes 5.8, Absolute Lymphocytes 0.9 L, Absolute Monocytes 0.5, Absolute Eosinophils 0, Absolute Basophils 0 07/04/182049: pH 7.44, pCO2 38, pO2 98, HCO3 25, ABG O2 Sat (Measured) 97.0, P-50 (Temp Corrected) N, Carboxyhemoglobin 0.9 L, O2 Concentration % 4L, Temperature 97.6, O2 Delivery Method NC, Phlebotomy Draw Site RIGHT RADIAL Assessment/Plan Impression/Plan: 67-year-old woman with metastatic pancreatic carcinoma has evidence of ascites bilateral pleural effusions and pulmonary nodules indicative of metastatic disease. The etiology of her effusion is likely related to large amount of ascites as well as possible pulmonary metastasis. There is a low index of suspicion for empyema. Palliative thoracentesis could be performed once anticoagulation has been reversed. As the patient has significant ascites and bilateral effusions unilateral Pleurx catheter is not likely to offer significant benefit agree with pursuing palliative care and hospice Consult Acknowledgment - Thank you for your consult request.
[2018-07-05 14:38] VITALS: BP 104/60
[2018-07-05 23:05] VITALS: BP 106/58
[2018-07-06 07:36] VITALS: BP 100/58
--- NOTE | 2018-07-06 08:31 | PN- Pulmonary ---
Subjective HPI/Critical Care Issues: Patient feels more comfortable and less short of breath. Patient and family are comfortable with continuing palliative care without thoracentesis Objective Current Medications: Current Medications Sig/Jonathan Start time Last Medication Dose Route Stop Time Status Admin Acetaminophen 650 MG Q6P PRN 07/05 0530 AC PO Furosemide 20 MG 1115 07/05 1115 DC 07/05 IV 07/05 1116 1111 Furosemide 0 .STK-MED ONE 07/05 1112 DC IV Gabapentin 100 MG Q8 07/05 1400 AC 07/06 PO 0601 Metoprolol Succinate 100 MG DAILY 07/05 0900 AC 07/05 PO 0857 Morphine Sulfate 2 MG ONCE ONE 07/05 1115 DC 07/05 IV 07/05 1116 1221 Morphine Sulfate 15 MG BID 07/05 09 AC 07/05 PO 2125 Morphine Sulfate 15 MG Q6P PRN 07/05 0530 AC 07/06 PO 0255 Morphine Sulfate 2 MG Q6P PRN 07/05 0330 AC 07/06 IV 0001 Polyethylene Glycol 17 GM DAILY 07/05 09 AC 07/05 PO 0852 Senna/Docusate Sodium 1 TAB BID 07/05 0900 AC PO Vital Signs & I&O Last 24 Hrs of Vitals and I&O: Vital Signs Date Time Temp Pulse Resp B/P B/P Pulse O2 O2 Flow FiO2 Mean Ox Delivery Rate 07/06 0736 97.8 58 18 100/58 97 07/06 0000 Nasal 6.0L Cannula 07/05 2305 97.9 60 16 106/58 100 07/05 1438 98.2 89 20 104/60 95 Nasal 4.0L Cannula 07/05 0857 86 122/74 Intake & Output 07/06 1600 07/06 0800 07/06 0000 Intake Total 120 Output Total Balance 120 Intake, Oral 120 Oxygen saturation 6 L 97% exam for chest shows markedly diminished breath sounds bilaterally cardiac exam shows regular S1 and S2 without murmurs abdomen is distended with ascites Impression/Plan Impression/Plan Impression/Plan: Unfortunate 67-year-old woman with metastatic pancreatic carcinoma probable malignant ascites and bilateral pleural effusions. Recommendations: Agree with continued discussions regarding hospice care. At present there are no plans to consider thoracentesis her Pleurx catheter
--- NOTE | 2018-07-06 09:27 | Discharge Summary ---
Visit Information Visit Dates Admission Date: 07/05/2018 Discharge Date: 07/07/2018 Hospital Course Course Attending Physician: Rahul Patel MD Primary Care Physician: Shannan Bates APRN Consulting Request: Consulting Physician: Dr. Chacho Franco [facility] Course: Patient is a 67-year-old female with a significant PMH of hypertension , GERD, nephrolithiasis, a DVT (1983) s/p Coumadin therapy DC'd ~6 months ago on Xarelto, and pancreatic cancer (09/2016) s/p chemotherapy who was admitted on for evaluation and management of acute hypoxic respiratory failure secondary to bilateral pleural effusions (R>L) likely R/T metastatic pancreatic cancer. Secondary to the patient's acute respiratory distress a pulmonary consult was requested to determine if any intervention existed to improve the patient's overall respiratory status. It was determined however that the patient was not a candidate for thoracentesis secondary to the significant likelihood of rapid fluid reaccumulation and the risk of hypoalbuminemia. Following further discussion with the patient and her family regarding palliative care on 07/06/2018, it was determined that the patient would pursue initiation of home hospice care to be provided by [facility] rodrigo [facility]. For the remaining course of the patient's hospitalization she was continued on only the outpatient medications she requested. A regimen of IV Morphine was initiated PRN pain and a regimen of IV Ativan initiated PRN anxiety/respiratory distress. Supplemental O2 was also provided for comfort. Following 48 hours of hospitalization, it was determined that the patient would be stable for discharge home with initiation of home hospice care on the afternoon of 2017. Complications: none Allergies: Coded Allergies: erythromycin base (Intermediate, ABDOMINAL PAIN 12/03/16) lisinopril (Intermediate, COUGHING 12/03/16) Significant Procedures: CTA Chest (07/04/2018) IMPRESSION: 1. No evidence of central or proximal segmental pulmonary embolism. 2. Moderate to large right and moderate left pleural effusions with associated dependent collapse/consolidation. The attenuation of the effusions measures more than expected for simple fluid; correlation with body fluid analysis is suggested. 3. Multiple subcentimeter pulmonary nodules; given the patient's history of malignancy, these findings are concerning for metastatic disease. 4. Partially visualized ascites. CXR (07/04/2018) IMPRESSION: 1. Bilateral opacities of lung. Moderate to large right pleural effusion now present. There is a small left pleural effusion with left basilar infiltrate/atelectasis. Pertinent Lab Results: Laboratory Tests 07/05/18 1000: Fluid WBC Cancelled, Fld Total RBCs Counted Cancelled 07/05/18 1000: Fluid LDH Cancelled 07/05/18 0739: Fluid Total Protein Cancelled 07/04/182054: Anion Gap 7, Estimated GFR > 60, BUN/Creatinine Ratio 25.7 H, Glucose 93, Calcium 9.0, Total Bilirubin 0.5, AST 20, ALT 23, Alkaline Phosphatase 84, Troponin I < 0.01, Total Protein 5.4 L, Albumin 2.4 L, Globulin 3.0, Albumin/ Globulin Ratio 0.8 L, PT 20.4 H, INR 1.86 H, APTT 31, CBC w Diff NO MAN DIFF REQ, RBC 3.84 L, MCV 89.3, MCH 28.4, MCHC 31.8 L, RDW 20.0 H, MPV 7.4, Gran % 79.7 H, Lymphocytes % 12.6 L, Monocytes % 7.2, Eosinophils % 0.3, Basophils % 0.2, Absolute Granulocytes 5.8, Absolute Lymphocytes 0.9 L, Absolute Monocytes 0.5, Absolute Eosinophils 0, Absolute Basophils 0 07/04/182049: pH 7.44, pCO2 38, pO2 98, HCO3 25, ABG O2 Sat (Measured) 97.0, P-50 (Temp Corrected) N, Carboxyhemoglobin 0.9 L, O2 Concentration % 4L, Temperature 97.6, O2 Delivery Method NC, Phlebotomy Draw Site RIGHT RADIAL 07/04/182031: Urine Color Cancelled, Urine Clarity Cancelled, Urine pH Cancelled, Ur Specific [place]y Cancelled, Urine Protein Cancelled, Urine Ketones Cancelled, Urine Nitrite Cancelled, Urine Bilirubin Cancelled, Urine Urobilinogen Cancelled, Ur Leukocyte Esterase Cancelled, Ur Microscopic Cancelled, Urine Hemoglobin Cancelled, Urine Glucose Cancelled Microbiology 07/05 739 BODY FLUID: Body Fluid Culture - CAN Cancelled: SPECIMEN NEVER RECEIVED. REORDER IF NEEDED 07/05 739 BODY FLUID: Gram Stain - CAN Cancelled: SPECIMEN NEVER RECEIVED. REORDER IF NEEDED Disposition Summary Disposition Principal Diagnosis: Pancreatic cancer with metastasis to lung/Malignant bilateral pleural effusions (R>L)/Malignant ascites Additional Diagnosis: Hypertension GERD Nephrolithiasis DVT on Xarelto Discharge Disposition: hospice - home Discharge Instructions General Discharge Information Code Status: Do Not Resucitate/Intubat Patient's Diet: as tolerated Patient's Activity: as tolerated Follow-Up Instructions/Appts: Please follow up with hospice care Medications at Discharge Discharge Medications: Stop taking the following medications: Amlodipine Besylate (Amlodipine Besylate) 5 MG TABLET ORAL DAILY Qty = 90 Cyanocobalamin (Vitamin B-12) 1,000 MCG TABLET ORAL DAILY Ondansetron HCl/Pf (Ondansetron HCl 4 MG/2 Ml Vial) 4 MG/2 ML VIAL IV GIVE ONCE as needed for NAUSEA/VOMITING Days = 3 Ondansetron (Zofran Odt) 4 MG TAB.RAPDIS SUBLINGUAL THREE TIMES DAILY as needed for NAUSEA Qty = 10 Continue taking these medications: Metoprolol Succ XL (Toprol XL) 100 MG TAB.ER.24H 1 Tablet ORAL DAILY Qty = 90 Comments: PER PT Calcium Carbonate/Vitamin D3 (Calcium 500 + D Tablet) 500 MG-400 TABLET 1 Tablet ORAL DAILY Comments: NOT GIVEN IN HOSPITAL Rivaroxaban (Xarelto) 20 MG TABLET 1 Tablet ORAL DAILY Instructions: with food Morphine Sulfate (Morphine Sulfate) 15 MG TABLET 1 Tablet ORAL EVERY 4 HOURS NEEDED as needed for PAIN Morphine Sulfate (Morphine Sulfate ER) 15 MG TABLET.ER 2 Tablet ORAL 2 x Daily as needed Magnesium Oxide (Magox 400) 400 MG TABLET 1 Tablet ORAL DAILY Qty = 30 Gallagher-3 Fatty Acids/Fish Oil (Fish Oil 1,000 MG Capsule) 340 MG-1,000 MG CAPSULE 1 Capsule ORAL DAILY Loperamide HCl (Loperamide) 2 MG CAPSULE 1 Capsule ORAL SEE INSTRUCTIONS as needed for diarrhea Instructions: Take 2 capsules at first sign, then 1 capsule every 2 hours until it stops. At night take 2 capsules every 4 hours. Omeprazole (Omeprazole) 40 MG CAPSULE.DR 1 Capsule ORAL DAILY Polyethylene Glycol 3350 (Miralax) 17 GRAM POWD.PACK 1 Packet ORAL TWICE DAILY as needed for constipation Ondansetron (Zofran Odt) 4 MG TAB.RAPDIS 1 Tablet ORAL EVERY SIX HOURS NEEDED as needed for nausea Morphine Sulfate (Morphine Sulfate) 20 MG/5 ML (4 MG/ML) SOLUTION 5 Milligram ORAL EVERY 2 HOURS NEEDED as needed for PAIN SCALE 7-10 ( SEVERE) Qty = 5 This prescription has been renewed LORazepam (Ativan) 1 MG TAB 1 Milligram ORAL EVERY 6 HOURS NEEDED as needed for ANXIETY/AGITATION/ INSOMNIA Qty = 15 This prescription has been renewed Copies To: Shannan Bates APRN Attending Review Statement Documenting Attending: Ernesto MARTINEZ,Aimee
--- NOTE | 2018-07-06 10:59 | Patient Discharge Instructions ---
Discharge Instructions General Discharge Information You were seen/treated for: Pleural effusion likely from pancreatic cancer/fluid in abdomen Special Instructions: Please follow up with hospice care Please follow up with [facility] Diet Continue normal diet: Yes Activity Activity Self Limited: Yes Acute Coronary Syndrome Inclusion Criteria At DC or during hospital stay patient has or had the following: ACS DIAGNOSIS No Discharge Core Measures Meds if any: Prescribed or Continued at Discharge Meds if any: NOT Prescribed or Continued at Discharge Congestive Heart Failure Inclusion Criteria At DC or during hospital stay patient has or had the following: CHF DIAGNOSIS No Discharge Core Measures Meds if any: Prescribed or Continued at Discharge Meds if any: NOT Prescribed or Continued at Discharge Cerebrovascular accident Inclusion Criteria At DC or during hospital stay patient has or had the following: CVA/TIA Diagnosis No Discharge Core Measures Meds if any: Prescribed or Continued at Discharge Meds if any: NOT Prescribed or Continued at Discharge Venous thromboembolism Inclusion Criteria VTE Diagnosis No VTE Type NONE VTE Confirmed by (Test) NONE Discharge Core Measures - Per Current guidelines, there needs to be overlap - treatment for the first 5 days of Warfarin therapy. - If discharged on Warfarin prior to 5 days of - overlap therapy, the patient will need to be - assessed for post discharge needs including - *Post discharge parental anticoagulation - *Warfarin and/or parental anticoagulation education - *Follow up date to check INR post discharge At least 5 days overlap therapy as Inpatient No Meds if any: Prescribed or Continued at Discharge Note: Overlap Therapy is Warfarin and Anticoagulant Meds if any: NOT Prescribed or Continued at Discharge
--- NOTE | 2018-07-06 13:16 | PN- Gen Med ---
Aspen Ahn 07/06/18 1238: Assessment/Plan Medical Assessment: Patient is a 67-year-old female with a significant PMH of hypertension , GERD, nephrolithiasis, a DVT (1983) s/p Coumadin therapy DC'd ~6 months ago on Xarelto, and pancreatic cancer s/p chemotherapy who was admitted on 07/05/2018 for evaluation and management of acute hypoxic respiratory failure secondary to bilateral pleural effusions likely R/T metastatic pancreatic cancer now awaiting DC to home for initiation of home hospice care. Problem List: 1. Pancreatic cancer metastasized to lung 2. Pleural effusion 3. Malignant ascites Plan: 1. Pancreatic cancer with metastasis to lung/Malignant bilateral pleural effusions (R>L)/Malignant ascites: - Patient is not a candidate for thoracentesis secondary to significant likelihood of rapid reaccumulation. - Administer supplemental O2 via NC to maintain O2 saturation above 90%. - Initiate regimen of IV Morphine PRN pain. - Continue patient's outpatient regimen of PO MS Contin/MSIR as long as she is able to tolerate PO intake safely. - Initiate regimen of IV Ativan PRN agitation/anxiety. - Initiate comfort care for remainder of inpatient hospitalization in anticipation of DC home in AM for initiation of home hospice care to be provided by [facility] per patient's wishes. 2. DVT prophylaxis: - Patient wishes to continue outpatient regimen of Xarelto at this time. 3. CODE STATUS: - DNR/DNI. Subjective Subjective: Patient appears to be resting comfortably in bed at present in no acute distress. She remains arousable to verbal/tactile stimuli and will nod her head to answer posed questions. She denies experiencing any discomfort at this time. PO intake remains minimal. Review of Systems Constitutional: Reports: see HPI. Objective Last 24 Hrs of Vital Signs/I&O Vital Signs Date Time Temp Pulse Resp B/P B/P Pulse O2 O2 Flow FiO2 Mean Ox Delivery Rate 07/06 0825 97.8 58 18 100/58 07/06 0800 Nasal 6.0L Cannula 07/06 0736 97.8 58 18 100/58 97 07/06 0000 Nasal 6.0L Cannula 07/05 2305 97.9 60 16 106/58 100 07/05 1438 98.2 89 20 104/60 95 Nasal 4.0L Cannula Intake & Output 07/06 1600 07/06 0800 07/06 0000 Intake Total 100 120 Output Total Balance 100 120 Intake, Oral 100 120 Physical Exam General Appearance: No Acute Distress, Patient is arousable to verbal/tactile stimuli and will nod her head to answer posed questions. Skin Temp/Moisture Exam: Warm/Dry HEENT: Atraumatic, Mucous memebranes appear pink/dry. Cardiovascular: Regular Rate, Normal S1, Normal S2 Lungs: Scattered rales bilaterally, R>L with decreased BS throughout bilateral bases. . Abdomen: Abdomen appears soft/distended with visible fluid wave on exam. Extremities: 1-2+ bilateral LE edema noted on exam. 2+ DP pulses are palpable bilaterally. Current Medications: Current Medications Sig/Jonathan Start time Last Medication Dose Route Stop Time Status Admin Acetaminophen 650 MG Q6P PRN 07/05 0530 AC PO Gabapentin 100 MG Q8 07/05 1400 AC 07/06 PO 0601 Lorazepam 0.5 MG Q4P PRN 07/06 0930 AC IV Metoprolol Succinate 100 MG DAILY 07/05 0900 AC 07/05 PO 0857 Morphine Sulfate 2 MG Q2 HRS NEEDED PRN 07/06 0930 AC 07/06 IV 1052 Morphine Sulfate 15 MG BID 07/05 0900 AC 07/05 PO 2125 Morphine Sulfate 15 MG Q6P PRN 07/05 0530 AC 07/06 PO 0255 Morphine Sulfate 2 MG Q6P PRN 07/05 0330 DC 07/06 IV 0001 Polyethylene Glycol 17 GM DAILY 07/05 09 AC 07/06 PO 0825 Senna/Docusate Sodium 1 TAB BID 07/05 09 AC 07/06 PO 0825 Ernesto MARTINEZ,Aimee 07/06/18 1347: Assessment/Plan Medical Plan: Patient seen and examined, discussed with patient's , hospice nurse and case management. Patient is under home hospice and would like to go home back on home hospice. She does not want to stay here. As noted in the previous notes between discussions between Dr. Huertas and Dr. Linares, patient is not a candidate for thoracentesis due to the risk of rapid recommendation as well as patient becoming hypoalbuminemic rapidly. At this point patient and family would like to continue with hospice care at home. We will continue medications for comfort. Patient also wants to continue her metoprolol, her Xarelto, her vitamins. We have added morphine and we discussed with the hospice nurse about additional morphine and Ativan which will be added to her medications. Once arrangements are made for home hospice patient can likely be discharged home with home hospice in the next 24-48 hours.
[2018-07-06] MEDS ORDERED: FISH OIL 1,0001 EACH PO (13:50)
[2018-07-06] MEDS ORDERED: MORPHINE S20 MG/5 ML PO ×2 (13:52→14:09)
[2018-07-06] MEDS ORDERED: ATIVAN1 M1 PO ×2 (13:54→14:09)
[2018-07-06] MEDS ORDERED: LOPERAMIDE2 M2 PO (13:58)
[2018-07-06] MEDS ORDERED: OMEPRAZOLE40 M1 PO (13:59)
[2018-07-06] MEDS ORDERED: ZOFRAN ODT4 M1 PO (14:00)
[2018-07-06] MEDS ORDERED: MIRALAX17 G1 PO (14:00)
[2018-07-06 15:43] VITALS: BP 124/74
[2018-07-06 23:02] VITALS: BP 124/80
[2018-07-07 06:51] VITALS: BP 118/78
[2018-07-07 08:07] VITALS: BP 118/78
--- NOTE | 2018-07-07 12:32 | PN- Gen Med ---
Assessment/Plan Medical Assessment: Patient is a 67-year-old female with a significant PMH of hypertension , GERD, nephrolithiasis, a DVT (1983) s/p Coumadin therapy DC'd ~6 months ago on Xarelto, and pancreatic cancer s/p chemotherapy who was admitted on 07/05/2018 for evaluation and management of acute hypoxic respiratory failure secondary to bilateral pleural effusions likely R/T metastatic pancreatic cancer now awaiting DC to home for initiation of home hospice care. Problem List: 1. Pancreatic cancer metastasized to lung 2. Pleural effusion 3. Malignant ascites Plan: 1. Pancreatic cancer with metastasis to lung/Malignant bilateral pleural effusions (R>L)/Malignant ascites: - Patient is not a candidate for thoracentesis secondary to significant likelihood of rapid reaccumulation. - Administer supplemental O2 via NC to maintain O2 saturation above 90%. - Continue regimen of IV Morphine PRN pain. - Continue patient's outpatient regimen of PO MS Contin/MSIR as long as she is able to tolerate PO intake safely. - Continue regimen of IV Ativan PRN agitation/anxiety. - Continue comfort care for remainder of inpatient hospitalization in anticipation of DC home this afternoon for initiation of home hospice care to be provided by [facility] per patient's request. 2. DVT prophylaxis: - Patient wishes to continue outpatient regimen of Xarelto at this time. 3. CODE STATUS: - DNR/DNI. Consulting Request: Consulting Physician: Dr. Chacho Franco Discharge Plan Discharge Disposition: home Stable for Discharge? Yes Anticipated Discharge (Day): today If Discharged Today/In 24 Hrs: W-10/discharge paper done, DC summary done, CMR done Subjective Subjective: Patient appears to be resting comfortably in bed at present in no acute distress. She remains arousable to verbal/tactile stimuli and will nod her head to answer posed questions. She reports experiencing intermittent back pain which resolved with respositioning of patient in bed. PO intake remains minimal. Review of Systems Constitutional: Reports: see HPI. Objective Last 24 Hrs of Vital Signs/I&O Vital Signs Date Time Temp Pulse Resp B/P B/P Pulse O2 O2 Flow FiO2 Mean Ox Delivery Rate 07/07 0807 97.6 100 18 118/78 07/07 0800 Nasal 2.0L Cannula 07/07 0651 97.6 100 18 118/78 94 07/07 0000 Nasal 6.0L Cannula 07/06 2302 95.9 92 18 124/80 94 Nasal Cannula 07/06 1543 97.8 60 18 124/74 95 Intake & Output 07/07 1600 07/07 0800 07/07 0000 Intake Total 240 240 Output Total 150 Balance 240 90 Intake, Oral 240 240 Output, Urine 150 Physical Exam General Appearance: No Acute Distress, Patient is arousable to verbal/tactile stimuli and will nod her head to answer posed questions. Skin Temp/Moisture Exam: Warm/Dry HEENT: Atraumatic, Mucous membranes appear pink/dry. Cardiovascular: Regular Rate, Normal S1, Normal S2 Lungs: Scattered rales bilaterally, R>L with decreased BS throughout bilateral bases. Abdomen: Abdomen appears soft/distended with visible fluid wave on exam. Extremities: 1-2+ bilateral LE edema noted on exam. Bilateral feet are cool to touch with evidence of mottling developing to plantar aspect of bilateral feet. Current Medications: Current Medications Sig/Jonathan Start time Last Medication Dose Route Stop Time Status Admin Acetaminophen 650 MG Q6P PRN 07/05 0530 AC PO Gabapentin 100 MG Q8 07/05 1400 AC 07/07 PO 0649 Lorazepam 0.5 MG Q4P PRN 07/06 0930 AC 07/07 IV 0005 Metoprolol Succinate 100 MG DAILY 07/05 09 AC 07/07 PO 0807 Morphine Sulfate 2 MG Q2 HRS NEEDED PRN 07/06 0930 AC 07/07 IV 0653 Morphine Sulfate 15 MG BID 07/05 09 AC 07/07 PO 0811 Morphine Sulfate 15 MG Q6P PRN 07/05 0530 AC 07/06 PO 0255 Patient Medication 1 ED ONE ONE 07/06 2000 [facility] ED 07/06 2001 Polyethylene Glycol 17 GM DAILY 07/05 09 AC 07/07 PO 0806 Senna/Docusate Sodium 1 TAB BID 07/05 09 AC 07/06 PO 195
== END 2018-07-07 14:46 | disposition home or self-care (01) | DRG 180 ==
LOC: ERH 20:17 → ERHI 07-05 00:03 → ENRESERV 07-05 00:28 → 1NO 07-05 01:29 → 2NA 07-05 10:44 → 1NO 07-05 11:37 → ENTRNSPT 07-05 22:24 → EDTRNSPTSTS 07-05 22:28 → 2NA 07-05 22:52 → CMPTRNSPT 07-05 23:00 → 2NA 07-06 07:55
PROVIDERS: Emergency Medicine
DX: C78.01 Secondary malignant neoplasm of right lung (principal); J96.01 Acute respiratory failure with hypoxia; C25.9 Malignant neoplasm of pancreas, unspecified; J91.0 Malignant pleural effusion; R18.0 Malignant ascites; C78.02 Secondary malignant neoplasm of left lung; I10 Essential (primary) hypertension; K21.9 Gastro-esophageal reflux disease without esophagitis; Z79.01 Long term (current) use of anticoagulants; Z88.1 Allergy status to other antibiotic agents; Z88.8 Allergy status to other drugs, medicaments and biological substances; Z51.5 Encounter for palliative care; Z87.891 Personal history of nicotine dependence; Z66 Do not resuscitate
CPT/HCPCS: 2NAP; 87075; 71045; 93005; 93010; 96374; J1650; J1940; J3490; J7508